=== PATIENT | male | born 1970 | race Two or more races ===

== ENCOUNTER 2024-05-25 13:13 | Inpatient (IN) | payer BC, OTHER ==
[~2024-05-25] VITALS: Ht 172.7 cm; Wt 110.0 kg
--- NOTE | 2024-05-25 13:18 | ED.PDOC ---
History of Present Illness HPI Comments 54 year old male HERNANDO transferred from [facility] presents to the ED with chief complaint of syncope. EMS reports patient had a syncopal episodes yesterday to which he was brought to [facility] for further evaluation. EMS relays patient was found to have a fractured spine from L3-L5 and bruised r ibs. EMS states patient had also reportedly hit his head during the fall. Patient denies any chest pain, SOB, dizziness, or N/V. Time Seen by MD: 13:15 Reviewed Notes: Nurses Notes, Varnish Melter Notes, Medications, Allergies Information Source: Patient, Emergency Med Personnel Mode of Arrival: EMS Severity: Moderate Timing: Days Duration: Since onset Prehospital treatment: None Past Medical History PAST MEDICAL HISTORY: Denies Surgical History: Denies all surgeries Family History Family History: Reviewed,noncontributory to illness Social History Smoker: Non-Smoker Alcohol: Denies ETOH Use Drugs: Denies Drug Use Lives In: Home Constitutional: denies: chills, diaphoresis, fatigue, fever, malaise, sweats, weakness, others EENTM: denies: blurred vision, double vision, ear bleeding, ear discharge, ear drainage, ear pain, ear ringing, eye pain, eye redness, hearing loss, mouth pain, mouth swelling, nasal discharge, nose bleeding, nose congestion, nose pain, photophobia, tearing, throat pain, throat swelling, voice changes, others Respiratory: denies: cough, hemoptysis, orthopnea, SOB at rest, shortness of breath, SOB with excertion, stridor, wheezing, others Cardiovascular: reports: syncope; denies: chest pain, dizzy spells, diaphoresis, Dyspnea on exertion, edema, irregular heart beat, left arm pain, li ghtheadedness, palpitations, PND, others Gastrointestinal: denies: abdomen distended, abdominal pain, blood streaked bowels, constipated, diarrhea, dysphagia, difficulty swallowing, hematemesis, melena, nausea, poor appetite, poor fluid intake, rectal bleeding, rectal pain, vomiting, others Genitourinary: denies: burning, dysuria, flank pain, frequency, hematuria, incontinence, penile discharge, penile sore, pain, testicle pain, testicle swelling, urgency, others Neurological: reports: headache; denies: dizziness, fainting, left sided numbness, left sided weakness, numbness, paresthesia, pre-existing deficit, right sided numbness, right sided weakness, seizure, speech problems, tingling, tremors, weakness, others Musculoskeletal: reports: back pain; denies: gout, joint pain, joint swelling, muscle pain, muscle stiffness, neck pain, others Integumetry: denies: bruises, change in color, change in hair/nails, dryness, laceration, lesions, lumps, rash, wounds, others Allergic/Immunocompromised: denies: Difficulty Healing, Frequent Infections, Hives, Itching, others Hematologic/Lymphatic: denies: anemia, blood clots, easy bleeding, easy bruising, swollen glands, others Endocrine: denies: excessive hunger, excessive sweating, excessive thirst, excessive urination, flushing, intolerance to cold, intolerance to heat, unexplained weight gain, unexplained weight loss, others Psychiatric: denies: anxiety, bipolar disorder, depression, hopeless, panic disorder, schizophrenia, sleepless, suicidal, others All Other Systems: Reviewed and Negative Physical Exam General Appearance: Moderate Distress, Normal HEENT: Normal ENT Inspection, PERRL/EOMI Neck: Full Range of Motion, Non-Tender, Normal, Normal Inspection Respiratory: Chest Non-Tender, Lungs Clear, No Accessory Muscle Use, No Respiratory Distress, Normal Breath Sounds Cardiovascular: No Edema, No JVD, No Murmur, No Gallop, Normal Peripheral Pulses, Regular Rate/Rhythm Breast Exam: Deferred Gastrointestinal: No Organomegaly, Non Tender, No Pulsatile Mass, Normal Bowel Sounds, Soft Genitalia: Deferred Pelvic: Deferred Rectal: Deferred Extremities: No calf tenderness, Normal capillary refill, Normal inspection, Normal range of motion, Non-tender, No pedal edema Musculoskeletal : Apperance: Normal Neurologic: Alert, clinical biostatistician II-XII nml as Tested, No Motor Deficits, Normal Affect, Normal Mood, No Sensory Deficits Cerebellar Function: NOT DONE Reflexes: NOT DONE Skin: Dry, Normal Color, Warm Peripheral Pulses: 3+ Radial (R), 3+ Radial (L) Lymphatic: No Adenopathy Was a procedure done? Was a procedure done?: No Differential Dx Considerations may include: Syncope Electrolyte imbalance X-Ray, Labs, Meds, VS Vital Signs Date Time Temp Pulse Resp B/P (MAP) Pulse Ox O2 Delivery O2 Flow Rate FiO2 05/25/24 13:42 98.6 99 16 131/90 (104) 99 Lab Test 05/25/24 13:57 Range/Units White Blood Count 10.5 4.4-10.8 10^3/uL Red Blood Count 4.60 4.5-5.90 10^6/uL Hemoglobin 16.2 13.5-17.5 g/dL Hematocrit 45.8 41.0-53.0 % Mean Corpuscular Volume 99.6 80.0-100.0 fL Mean Corpuscular Hemoglobin 35.1 H 28.0-32.0 pg Mean Corpuscular Hemoglobin Concent 35.3 32.0-36.0 g/dL Red Cell Distribution Width 13.6 11.8-14.3 % Platelet Count 254 140-450 10^3/uL Mean Platelet Volume 6.6 L 6.9-10.8 fL Neutrophils (%) (Auto) 79.9 37.0-80.0 % Lymphocytes (%) (Auto) 10.2 10.0-50.0 % Monocytes (%) (Auto) 7.6 0.0-12.0 % Eosinophils (%) (Auto) 1.4 0.0-7.0 % Basophils (%) (Auto) 0.9 0.0-2.0 % Neutrophils # (Auto) 8.4 1.6-8.6 10 ^3/uL Lymphocytes # (Auto) 1.1 0.4-5.4 10 ^3/uL Monocytes # (Auto) 0.8 0-1.3 10 ^3/uL Eosinophils # (Auto) 0.1 0-0.8 10 ^3/uL Basophils # (Auto) 0.1 0-0.2 10 ^3/uL Nucleated Red Blood Cells 0.1 % Sodium Level Pending Potassium Level Pending Chloride Level Pending Carbon Dioxide Level Pending Anion Gap Pending Blood Urea Nitrogen Pending Creatinine Pending Glomerular Filtration Rate Calc Pending BUN/Creatinine Ratio Pending Serum Glucose Pending Calcium Level Pending Troponin I High Sensitivity Pending Patient alert. Status post fall. Was transferred from [facility]. Vitals stable. Possible syncope. WBC within normal limits. Hemoglobin within normal limits. After reviewing Jasper nose he does have fracture of lumbar transverse process. Explained to the patient. Echo. Continue cardiac monitoring. Time of 1ST Reevaluation: 14:15 Reevaluation 1ST: Unchanged Patient Education/Counseling: Diagnosis, Treatment Family Education/Counseling: No Family Present Departure 1 Departure Time of Disposition: 14:34 Impression: Primary Impression: Syncope Qualified Codes: R55 - Syncope and collapse Additional Impressions: Musculoskeletal pain Lumbar vertebral fracture Qualified Codes: S32.039A - Unspecified fracture of third lumbar vertebra, initial encounter for closed fracture Disposition: ADMITTED INPATIENT Admit to: Med Surg Condition: Guarded Critical Care Note Critical Care Time?: Yes Stability Stability form required: No Heart Score Heart Score: Heart Score Response (Comments) Value History N/A 0 EKG N/A 0 Age N/A 0 Risk Factors N/A 0 Troponin N/A 0 Total 0 I personally scribed for BRAXTON HOOD MD ([email or web address]) on 05/25/24 at 13:18. Electronically submitted by Mateo Rivera ([email or web address]). BRAXTON HOOD MD May 25, 2024 13:18
[2024-05-25 14:13] LABS: Hemoglobin 16.2 g/dL (13.5-17.5); Lymphocytes # (auto) 1.1 10 ^3/uL (0.4-5.4); Mean Corpuscular Hgb Conc. 35.3 g/dL (32.0-36.0); Red Cell Distribution Width 13.6 % (11.8-14.3)
[2024-05-25 14:16] LABS: Basophils # (auto) 0.1 10 ^3/uL (0-0.2); Basophils % (auto) 0.9 % (0.0-2.0); Eosinophils # (auto) 0.1 10 ^3/uL (0-0.8); Eosinophils % (auto) 1.4 % (0.0-7.0); Hematocrit 45.8 % (41.0-53.0); Lymphocytes % (auto) 10.2 % (10.0-50.0); Mean Corpuscular Hemoglobin 35.1 pg (28.0-32.0); Mean Corpuscular Volume 99.6 fL (80.0-100.0); Monocytes # (auto) 0.8 10 ^3/uL (0-1.3); Monocytes % (auto) 7.6 % (0.0-12.0); Neutrophils # (auto) 8.4 10 ^3/uL (1.6-8.6); Neutrophils % (auto) 79.9 % (37.0-80.0); Nucleated Red Blood Cells % 0.1 %; Platelet Count (auto) 254 10^3/uL (140-450); White Blood Cell 10.5 10^3/uL (4.4-10.8)
[2024-05-25 14:24] LABS: Chloride 107 mmol/L (98-107); Potassium 4.3 mmol/L (3.5-5.1); Sodium 140 mmol/L (136-145)
[2024-05-25 14:25] LABS: Anion Gap 7 (5-15); Carbon Dioxide 26 mmol/L (20-31)
[2024-05-25 14:26] LABS: Calcium 9.5 mg/dL (8.7-10.4)
[2024-05-25 14:30] LABS: BUN/Creatinine Ratio 14.9 (10.0-20.0); Blood Urea Nitrogen 13 mg/dL (9-23); Glucose 118 mg/dL (74-106)
[2024-05-25 17:59] VITALS: PULSE 90; RESP 18; O2SAT 91
--- NOTE | 2024-05-25 18:14 | DVH ---
EXAM: CT LS SPINE WO CONTRAST HISTORY: FX COMPARISON: None CTDIvol 38.94 mGy, DLP 1311.37 mGy*cm. TECHNIQUE: Multiple axial CT images of the spine were obtained using bone algorithm. Axial and coron al reformatting was done. Bone and soft tissue windows were reviewed. Findings/ IMPRESSION: Fractures of the left lateral transverse processes of L1-L3. No significant osseous spinal canal sten osis. Mild to moderate osseous neural foraminal narrowing predominantly in the lower lumbar spine. Ad jacent soft tissue structures are unremarkable.
[2024-05-25] MEDS ORDERED: ONDANSETRON HCL 4 MG/2 ML VIAL IV PRN (20:30)
[2024-05-25] MEDS ORDERED: NITROGLYCERIN 0.4 MG SL TAB SL PRN (20:30)
[2024-05-25] MEDS ORDERED: MORPHINE SULFATE INJ 2 MG/ml SYRG IV PRN (20:30)
--- NOTE | 2024-05-25 21:14 | DVH ---
Carotid Duplex Clinical History: syncope Comparison: None Technique: Duplex Doppler evaluation of the extracranial carotid and vertebral arteries including color Doppler and spectral/pulsed waveform analysis was performed. Findings: RIGHT SIDE: The peak systolic velocities are 118 cm/s in the CCA, 100 cm/s in the ICA. The ICA/CCA ratio is 0.8. The external carotid artery is patent with peak systolic velocity of 75 cm/s proximally. There is appropriate antegrade flow in the right vertebral artery. LEFT SIDE: The peak systolic velocities are 88 cm/s in the CCA, 101 cm/s in the ICA. The ICA/CCA ratio is 1.2. The external carotid artery is patent with peak systolic velocity of 102 cm/s proximally. There is appropriate antegrade flow in the left vertebral artery. IMPRESSION: No hemodynamically significant stenosis noted in the right carotid system. No hemodynamically significant stenosis noted in the left carotid system. Reference: Radiology 2003; 229:340-346 Normal ICA PSV is <125 cm/sec and no plaque or intimal thickening is visible sonographically additional criteria include ICA/CCA PSV ratio <2.0 and ICA EDV <40 cm/sec <50% ICA stenosis ICA PSV is <125 cm/sec and plaque or intimal thickening is visible sonographically additional criteria include ICA/CCA PSV ratio <2.0 and ICA EDV <40 cm/sec 50-69% ICA stenosis ICA PSV is 125-230 cm/sec and plaque is visible sonographically additional criteria include ICA/CCA PSV ratio of 2.0-4.0 and ICA EDV of 40-100 cm/sec 70% ICA stenosis but less than near occlusion ICA PSV is >230 cm/sec and visible plaque and luminal narrowing are seen at carlson-scale and color Dopp ler ultrasound (the higher the Doppler parameters lie above the threshold of 230 cm/sec, the greater the likelihood of severe disease) additional criteria include ICA/CCA PSV ratio >4 and ICA EDV >100 cm/sec
--- NOTE | 2024-05-25 21:46 | DVHHPRES ---
History of Present Illness Resident Creating Document: YAMEL ANN RESIDENT History of Present Illness Kaiser Jiang is a 54 years old male with a PMH of type 2 DM, HLD, HTN transferred from the [facility] with a chief complaints of mechanical fall and syncope/seizure-like symptoms since yesterday afternoon. Patient reported yesterday he and his or walking, suddenly he lost balance in his lower legs, fell on the pedestrian walkway to his left side of body which resulted conjunctiva hemorrhage, left facial abrasion, bruise below the chin, chest tenderness and they went to hotel room and the night in restroom his observed him as he is unable to respond to commands, eyes opened and hence her stiff for a brief period 30-40 seconds and then he regain to normal conscious level, went to [facility], there imaging showed to have a fractured spine from L3-L5 and bruised ribs, the transferred patient to this facility for further management. Past Medical History Type 2 DM, HLD, HTN, bilateral neuropathy Past Surgical History: Appendectomy Family History: None Past Social History Lives with . Active smoker less than pack per day, 4-5 beers per day, but denies marijuana Review of Systems Constitutional: Yes: Sweats Eyes: Conjunctivae inflammation, Other (Subconjunctival hemorrhage), Redness ENT: No: Ear pain, Ear discharge, Nose pain, Nose discharge, Nose congestion, Mouth pain, Mouth swelling, Throat pain, Throat swelling, Other Respiratory: No: Cough, Dry, Shortness of breath, SOB with excertion, Wheezing, Hemoptysis, Pleuritic Pain, Sputum, Wheezing, Other Cardiovascular: Chest Pain Gastrointestinal: No: Nausea, Vomiting, Abdominal Pain, Diarrhea, Constipation, Melena, Hematochezia, Other Genitourinary: No Dysuria, No Frequency, No Incontinence, No Hematuria, No Retention, No Other Musculoskeletal: other (Shooting Pain to both legs), shoulder pain, back pain, leg pain Skin: Bruising Neurological: No: Weakness, Numbness, Incoordination, Change in speech, Confusion, Seizures, Other Allergies: Coded Allergies: NO KNOWN ALLERGIES (Unverified , 05/25/24) Medications Current Medications Medications Dose Ordered Sig/Lissy Route Start Time Stop Time Status Last Admin Dose Admin Sodium Chloride 10 ml Q8HR IV 05/25/24 22:00 Ondansetron HCl 4 mg Q4HP PRN IV 05/25/24 20:30 Acetaminophen 650 mg Q6HP PRN PO 05/25/24 20:30 Morphine Sulfate 2 mg Q4HPRN PRN IV 05/25/24 20:30 Enoxaparin Sodium 40 mg DAILY SC 05/25/24 20:30 Nitroglycerin 0.4 mg Q5MINP PRN SL 05/25/24 20:30 Morphine Sulfate 2 mg Q30M PRN IV 05/25/24 20:30 Exam Vital Signs Vital Signs Date Time Temp Pulse Resp B/P (MAP) Pulse Ox O2 Delivery O2 Flow Rate FiO2 05/25/24 18:34 85 20 131/82 (98) 95 05/25/24 17:59 Room Air* 0 21 05/25/24 17:57 98.1 98.1 Exam Pt is lying on bed General Appearance: Alert, Oriented X3, Cooperative, Not in acute distress HEENT: Subconjunctival hemorrhage Respiratory: Clear to auscultation, Normal air movement, No added sounds Cardiovascular: Chest tenderness Regular rate, Normal S1, Normal S2, No murmurs Abdominal: Active bowel sounds, Soft, no distention, no tenderness Extremities: Shooting pain to both legs, no edema Skin: Left facial abrasions, submental bruises MSK: Back and chest tenderness Neuro: Normal speech, sensorimotor deficits none Psych/Mental Status: Mental status NL, Mood NL Nurse was there as sharperone during examination Labs/Xrays Labs Test 05/25/24 13:57 Range/Units White Blood Count 10.5 4.4-10.8 10^3/uL Red Blood Count 4.60 4.5-5.90 10^6/uL Hemoglobin 16.2 13.5-17.5 g/dL Hematocrit 45.8 41.0-53.0 % Mean Corpuscular Volume 99.6 80.0-100.0 fL Mean Corpuscular Hemoglobin 35.1 H 28.0-32.0 pg Mean Corpuscular Hemoglobin Concent 35.3 32.0-36.0 g/dL Red Cell Distribution Width 13.6 11.8-14.3 % Platelet Count 254 140-450 10^3/uL Mean Platelet Volume 6.6 L 6.9-10.8 fL Neutrophils (%) (Auto) 79.9 37.0-80.0 % Lymphocytes (%) (Auto) 10.2 10.0-50.0 % Monocytes (%) (Auto) 7.6 0.0-12.0 % Eosinophils (%) (Auto) 1.4 0.0-7.0 % Basophils (%) (Auto) 0.9 0.0-2.0 % Neutrophils # (Auto) 8.4 1.6-8.6 10 ^3/uL Lymphocytes # (Auto) 1.1 0.4-5.4 10 ^3/uL Monocytes # (Auto) 0.8 0-1.3 10 ^3/uL Eosinophils # (Auto) 0.1 0-0.8 10 ^3/uL Basophils # (Auto) 0.1 0-0.2 10 ^3/uL Nucleated Red Blood Cells 0.1 % Sodium Level 140 136-145 mmol/L Potassium Level 4.3 3.5-5.1 mmol/L Chloride Level 107 98-107 mmol/L Carbon Dioxide Level 26 20-31 mmol/L Anion Gap 7 5-15 Blood Urea Nitrogen 13 9-23 mg/dL Creatinine 0.87 0.700-1.30 mg/dL Glomerular Filtration Rate Calc 102 >90 mL/min BUN/Creatinine Ratio 14.9 10.0-20.0 Serum Glucose 118 H 74-106 mg/dL Calcium Level 9.5 8.7-10.4 mg/dL Troponin I High Sensitivity < 3 L </=54 ng/L Assessment/Plan Assessment/Plan # mechanical fall without LOC # questionable seizures vs Syncope -ordered head CT -carotid Doppler showed no significant stenosis -neurology consultation if needed # Acute Fractures of the left lateral transverse processes of L1-L3 -evident on lumbar spine CT -consulted orthopedics for further evaluation -pain management as needed # ? subconjunctival hemorrhage left eye sequela of fall -monitor for now -no vision changes for now # chest contusion -pain management for now -supportive treatment # T2 DM -continuously monitor blood glucose -mild ISS if needed # tobacco dependence # alcohol abuse disorder -monitor for withdrawal symptoms -counseled regarding cessation for more than 17 minutes -consider concern nicotine patch if needed Lovenox for now No GI PPX Diabetic diet Goals of care discussed with the patient for more than 27 minutes: Full code status Case management discussed with Dr. Awad, patient and nurse Plan discussed with: Patient My Orders Orders - YAMEL ANN RESIDENT Procedure Category Date Status Time Admit ADMIT 05/25/24 Transmitted 20:27 Allergies KUNAL 05/25/24 In Process 20:27 Code Status CODE 05/25/24 Transmitted 20:27 2 Gm Sodium Diet DIET 05/26/24 Transmitted Breakfast Sodium Chloride Lock PHA 05/25/24 In Process (Saline Lock Ns) 22:00 Ondansetron Hcl PHA 05/25/24 In Process (Zofran) 20:30 Complete Blood Count LAB 05/26/24 Verified 04:00 Comprehensive LAB 05/26/24 Verified Metabolic Panel 04:00 Cardiac DIET 05/26/24 Transmitted Diet-2gna,Lofat,Lochol Breakfast Carotid Duplx W Color US 05/25/24 Resulted DOP 20:27 Acetaminophen Tablet PHA 05/25/24 In Process (Tylenol Tablet) 20:30 Morphine Sulfate PHA 05/25/24 In Process Injection 20:30 Enoxaparin Sodium PHA 05/25/24 In Process (Lovenox) 20:30 Nitroglycerin PHA 05/25/24 In Process Sublingual (Ntrostat 20:30 Morphine Sulfate PHA 05/25/24 In Process Injection 20:30 Oxygen By Nasal RT 05/25/24 Transmitted Cannula 20:27 Stat Ekg For Chest KUNAL 05/25/24 In Process Pain 20:27 Notify Of Changes KUNAL 05/25/24 In Process From Base 20:27 Talent Coordinator For KUNAL 05/25/24 In Process 24 Hours 20:27 Emergency Dysrhythmia KUNAL 05/25/24 In Process Protocol 20:27 Rhythm Strips Once KUNAL 05/25/24 In Process Every Shift 20:[address] 05/25/24 Logged 21:32 * Orthopedic Consult CONS 05/25/24 Transmitted 21:35 Vitamin D, 25-Hydroxy LAB 05/25/24 Logged 21:35 Vitamin B12 LAB 05/25/24 Logged 21:35 Urinalysis LAB 05/25/24 Logged 21:35 Thyroid Stimulating LAB 05/25/24 Logged Hormone 21:35 PTPTT LAB 05/25/24 Logged 21:35 Hemoglobin A1c LAB 05/25/24 Logged 21:35 Drug Screen LAB 05/25/24 Logged 21:35 Blood Alcohol LAB 05/25/24 Logged 21:35 Date of Service: May 25, 2024 Billing Provider: NAVEEN AWAD MD Common Visit Codes: [id number] INP/OBS CARE (HIGH) Secondary Visit Codes: 02998-[id number] CARE PLAN 30 MINUTES YAMEL ANN RESIDENT May 25, 2024 21:46 NAVEEN AWAD MD May 26, 2024 12:52
--- NOTE | 2024-05-25 22:19 | DVH ---
EXAM: CT STROKE CTH INDICATION: Mechanical fall TECHNIQUE: CT of the head without intravenous contrast. Radiation Dose Information: CT Dose: CTDI volume is 67.28 mGy. Dose-length product is 1325.6 mGy*cm The dose indicators for CT are the volume Computed Tomography (CT) Dose Index (CTDIvol) and the Dose Length Product (DLP), and are measured in units of mGy and mGy-cm, respectively. These indicators are not patient dose, but values generated from the CT scanner acquisition factors. The report includes radiation exposure data for exposures received during this examination. COMPARISON: None FINDINGS: There is no evidence of acute intracranial hemorrhage, extra-axial collection, mass effect, midline s hift, herniation or hydrocephalus. The ventricles, sulci and cisterns are age appropriate. The carlson-white differentiation is intact. Patchy periventricular and subcortical white matter hypoattenuation is nonspecific but may be related to small vessel ischemic disease. Air-fluid level left maxillary sinus and mastoid air cells are clear. The surrounding soft tissues and osseous structures are unremarkable. IMPRESSION: 1. No acute intracranial hemorrhage. 2. No CT findings of territorial ischemia. CRITICAL FINDINGS Critical Result: NEGATIVE Stroke Alert Findings discussed with Dr Matt, at 05/25/2024 10:07 PM, and acknowledged receipt and understandi ng of the findings. ..
[2024-05-25] MEDS: SODIUM CHLOR 0.9% PF (SALINE LOCK) 10ML VIAL/SYR IV SCH (22:59)
[2024-05-25] MEDS: MORPHINE SULFATE INJ 2 MG/ml SYRG IV PRN (23:09)
[2024-05-25] MEDS: ENOXAPARIN SOD 40 MG/0.4 ML SYRINGE SC SCH (23:10)
[2024-05-25 23:51] LABS: Urine Bacteria None Seen /hpf (None Seen)
[2024-05-25 23:52] LABS: Urine Blood Negative /uL (Negative); Urine Clarity Clear (Clear); Urine Color Light-Yellow (Yellow); Urine Protein, UAD Negative (Negative); Urine Specific Gravity 1.024 (1.001-1.035); Urine Urobilinogen Normal (Negative); Urine WBC <1 /hpf (0 - 3); Urine pH 6.5 (5.0-9.0)
[2024-05-26] VITALS (8 sets, daily range): BP systolic 122–139; BP diastolic 77–90; PULSE 16–91; RESP 16–18; TEMP 97.9–98.8; O2SAT 94–99
[2024-05-26 00:14] LABS: Amphetamine Screen, Urine Neg (NEGATIVE); Benzodiazephine Screen, Urine Neg (NEGATIVE)
[2024-05-26 00:15] LABS: Barbiturate Scree,Urine Neg (NEGATIVE); Cannabinoid Screen, Urine Neg (NEGATIVE); Cocaine Screen, Urine Neg (NEGATIVE); Opiate Scree,Urine Neg (NEGATIVE); Phencyclidine Screen, Urine Neg (NEGATIVE)
[2024-05-26 06:19] LABS: INR 0.99 (0.9-1.15); Partial Thromboplastin Time 29.7 SEC (24.5-34.5); Prothrombin Time 10.5 sec (9.3-11.8)
--- NOTE | 2024-05-26 07:05 | DVHPNRES ---
Progress Note Date Seen: May 26, 2024 Resident Creating Document: BRADFORD GERARD RESIDENT Medical Necessity Reason Pt with a Central, PICC or Fol: No Subjective Review of Systems Patient is a 54-year-old male with past medical history of diabetes, dyslipidemia, hypertension, degenerative arthritis of the spine, herniated L3-L5 discs, neuropathy, sciatica who came in after sustaining a mechanical fall. Patient notes that he often has episodes where either 1 or both of his knees buckle and he has to hold onto something for support. According to the patient, on 05/24/2024 he had a similar episode where his left knee buckled, he tried to hold onto a railing for support however he ended up twisting his torso and falling on the ground. Patient states that he hit his chin on the railing and hit the left side of his face on the floor. Patient was transferred from the [facility]. Patient notes that he was ambulatory after sustaining the fall. Past surgical history: Appendectomy, sustained a rib fracture from coughing in 2011 during an episode of bronchitis Home medications: Atorvastatin, Jardiance, amlodipine, duloxetine, metformin, alprazolam, gabapentin, celecoxib, losartan/HCT Past Hospitalization: In 2019 for lower back pain Social & Personal history: Patient lives with his in [place] in his currently traveling to [place]. Works in security. Smokes 3-5 cigarettes per day for the past 30 years. Drinks 4-5 beers every other day. Denies using any drugs. Allergies: Denies Patient seen and examined at bedside. Patient is alert and oriented to time, place person and responding to all questions. Eyes: No Pain, No Vision change, No Conjunctivae inflammation, No Eyelid inflammation, No Other, No Redness ENT: No Ear pain, No Ear discharge, No Nose pain, No Nose discharge, No Nose congestion, No Mouth pain, No Mouth swelling, No Throat pain, No Throat swelling, No Other Cardiovascular: No Chest Pain, No Palpitations, No Orthopnea, No Paroxysmal No Dyspnea, No Edema, No Lt Headedness, No Other Respiratory: No Cough, No Dry, No Shortness of breath, No SOB with exertion, No Wheezing, No Hemoptysis, No Pleuritic Pain, No Sputum, No Other Gastrointestinal: No Nausea, No Vomiting, No Abdominal Pain, No Diarrhea, No Constipation, No Melena, No Hematochezia, No Other Genitourinary: No Dysuria, No Frequency, No Incontinence, No Hematuria, No Retention, No Other Musculoskeletal: No other, No neck pain, No shoulder pain, No arm pain, No back pain, No hand pain, No leg pain, No foot pain Skin: No Rash, No Lesions, No Jaundice, No Bruising, No Other Objective vital signs Vital Sign Date Time Temp Pulse Resp B/P (MAP) Pulse Ox O2 Delivery O2 Flow Rate FiO2 05/26/24 05:27 83 18 122/89 05/26/24 05:00 98.8 94 98.8 05/26/24 00:41 Nasal Cannula* 2 28 Total Intake and Output 05/25/24 05/25/24 05/26/24 15:00 23:00 07:00 Intake Total 400 ml Output Total 920 ml Balance -520 ml medications Current Medications Medications Dose Ordered Sig/Lissy Route Start Time Stop Time Status Last Admin Dose Admin Sodium Chloride 10 ml Q8HR IV 05/25/24 22:00 05/26/24 05:28 10 ML Ondansetron HCl 4 mg Q4HP PRN IV 05/25/24 20:30 Acetaminophen 650 mg Q6HP PRN PO 05/25/24 20:30 Morphine Sulfate 2 mg Q4HPRN PRN IV 05/25/24 20:30 05/26/24 05:27 2 MG Enoxaparin Sodium 40 mg DAILY SC 05/25/24 20:30 05/25/24 23:10 40 MG Nitroglycerin 0.4 mg Q5MINP PRN SL 05/25/24 20:30 Morphine Sulfate 2 mg Q30M PRN IV 05/25/24 20:30 Examination General Appearance: Cooperative. Well developed. Well nourished. NAD Head Exam: Left subconjunctival hemorrhage noted, pain/soreness in the left eye on lateral deviation, all extraocular muscles intact Neck Exam: Medium-large submental hematoma. Non-tender. Normal alignment Pulmonary/Respiratory: Chest non-tender. Clear bilateral breath sounds, no crackles, no wheezing. Cardiovascular/Chest: Regular rate and rhythm. No murmurs. No JVD. Peripheral Pulses: 2+ Radial (R). 2+ Radial (L). 2+ Pedal (R). 2+ Pedal (L) Abdominal Exam: Normal bowel sounds. Soft. normal abdomen, no visible veins, Nontender. No hepatospenomegaly. No masses Ankle Exam: Negative ankle edema Lower extremities: Negative lower extremity edema Neuro/Mental Status: A&O x4. Coherent. Thoughts/Psych: Normal thought pattern. Appropriate mood and affect. Good judgement and insight Skin Exam: Normal inspection. Normal color. Warm. Dry laboratory and microbiology Laboratory Tests 05/25/24 13:57 Test 05/25/24 13:57 Range/Units Serum Glucose 118 H 74-106 mg/dL Labs and/or images reviewed: Labs reviewed by me, Image(s) reviewed by me Problem List/Assessment/Plan Problem List/Assessment/Plan Mechanical fall Fractures of the left lateral transverse processes of L1-L3 vertebra due to above Degenerative osteoarthritis of the spine Anterior chest wall trauma Ruled out stroke - lumbar spine CT: Fractures of the left lateral transverse processes of L1-L3. No significant osseous spinal canal stenosis. Gnee-yo-kzkslgaa osseous neuroforaminal narrowing predominantly in the lower lumbar spine. Adjacent soft tissue structures are unremarkable. - Head CT: No acute intracranial hemorrhage. No CT findings of territorial ischemia. - Carotid doppler: No hemodynamically significant stenosis noted in the right and left carotid system. - orthopedic consulted - CXR: Mild cardiomegaly and prominence of the pulmonary vasculature may suggest a mild degree of pulmonary vascular congestion in the appropriate clinical setting. Mild bibasilar atelectasis with no focal consolidation. No pneumothorax or pleural effusion visualized. Type 2 diabetes, Hb A1c 6.3 Peripheral neuropathy likely due to above - mild sliding scale insulin - gabapentin 400mg bid Obesity, BMI 36.7 - counseled extensively on healthy lifestyle interventions including diet and physical activity DVT prophylaxis: Levonox 40mg Goals of care: Full code, discussed for >16 minutes on 05/26/24 Plan discussed with patient Plan discussed with Dr. tSallings Plan discussed with: Patient, Other (RN) BRADFORD GERARD RESIDENT May 26, 2024 07:05
[2024-05-26] MEDS ORDERED: DEXTROSE (50%) 50ML SYRG IV PRN (10:30)
[2024-05-26] MEDS: InsuLIN REG 1unit/0.01ml Soln (100units/ml) SC SCH (11:30)
[2024-05-26] MEDS: ACCU-CHEK COMFORT CURVE STRIP VI SCH (12:23)
--- NOTE | 2024-05-26 12:57 | DVH ---
CLINICAL INFORMATION: 54 years old, Male; Chest trauma. TECHNIQUE: Single AP portable chest radiograph was obtained. COMPARISON: None FINDINGS: Lungs: Low lung volumes with mild bibasilar atelectasis. No focal consolidation visualized. Cardiac: Mild cardiomegaly. Pulmonary vasculature: Mild prominence of the pulmonary vasculature. Mediastinum/derek: Unremarkable. Bones: No acute osseous abnormality identified. Other: No other significant findings. IMPRESSION: 1. Mild cardiomegaly and prominence of the pulmonary vasculature May suggest a mild degree of pulmona ry vascular congestion in the appropriate clinical setting. 2. Mild bibasilar atelectasis with no focal consolidation. No pneumothorax or pleural effusion visual ized.
[2024-05-26] MEDS ORDERED: HYDROcodone-ACET 5/325MG TAB PO PRN (14:15)
[2024-05-26] MEDS: LIDOCAINE 5% TOPICAL PATCH TOP ONE (17:12)
[2024-05-26] MEDS: ceFAZolin 1GM/50ML 50 ML IV ONE (17:12)
[2024-05-26] MEDS: traMADol HCL 50 MG TAB PO PRN (17:12)
--- NOTE | 2024-05-26 17:35 | DVH ---
CLINICAL INDICATION: submental hematoma s/p fall TECHNIQUE: XY MANDIBLE COMPLETE MIN 4V Comparison: None FINDINGS/IMPRESSION: : There is no evidence of acute fracture or dislocation. Soft tissues are unremarkable.
[2024-05-26] MEDS: GABAPENTIN 400 MG CAP PO SCH (22:23)
[2024-05-26] MEDS: ceFAZolin 1GM/50ML 50 ML IV SCH (22:24)
[2024-05-27] VITALS (8 sets, daily range): BP systolic 117–144; BP diastolic 76–91; PULSE 79–94; RESP 17–19; TEMP 98–98.7; O2SAT 93–95
[2024-05-27 06:58] LABS: Basophils # (auto) 0 10 ^3/uL (0-0.2); Eosinophils # (auto) 0.2 10 ^3/uL (0-0.8); Hemoglobin 14.7 g/dL (13.5-17.5); Neutrophils # (auto) 4.3 10 ^3/uL (1.6-8.6); Red Blood Cells 4.17 10^6/uL (4.5-5.90); White Blood Cell 6.1 10^3/uL (4.4-10.8)
[2024-05-27 07:01] LABS: Basophils % (auto) 0.4 % (0.0-2.0); Eosinophils % (auto) 3.9 % (0.0-7.0); Hematocrit 41.6 % (41.0-53.0); Lymphocytes # (auto) 0.8 10 ^3/uL (0.4-5.4); Lymphocytes % (auto) 13.5 % (10.0-50.0); Mean Corpuscular Hemoglobin 35.2 pg (28.0-32.0); Mean Corpuscular Hgb Conc. 35.3 g/dL (32.0-36.0); Mean Corpuscular Volume 99.8 fL (80.0-100.0); Monocytes # (auto) 0.7 10 ^3/uL (0-1.3); Monocytes % (auto) 10.9 % (0.0-12.0); Neutrophils % (auto) 71.3 % (37.0-80.0); Nucleated Red Blood Cells % 0.1 %; Platelet Count (auto) 228 10^3/uL (140-450); Red Cell Distribution Width 13.5 % (11.8-14.3)
[2024-05-27 07:07] LABS: Anion Gap 6 (5-15); Carbon Dioxide 27 mmol/L (20-31); Chloride 106 mmol/L (98-107); Potassium 4.1 mmol/L (3.5-5.1); Sodium 139 mmol/L (136-145)
[2024-05-27 07:08] LABS: Calcium 9.4 mg/dL (8.7-10.4)
[2024-05-27 07:13] LABS: BUN/Creatinine Ratio 18.5 (10.0-20.0); Blood Urea Nitrogen 17 mg/dL (9-23); Glucose 140 mg/dL (74-106)
[2024-05-27] MEDS: LIDOCAINE 5% TOPICAL PATCH TOP SCH (09:39)
--- NOTE | 2024-05-27 17:08 | DVHPNRES ---
Progress Note Date Seen: May 27, 2024 Resident Creating Document: TAIWO MONAE RESIDENT Has the PT tested + for MRSA If YES, has PT been informed?: No Medical Necessity Reason Pt with a Central, PICC or Fol: No Subjective Review of Systems Apart from the lower back pain, patient is pleasant, around the neck the hematoma is stable, patient is able to talk eat breathe without any difficulty Patient reports: No new complaints, Feels better Review of Systems: HEENT:Abnormal (Hematoma), CVS:Normal, RESPIRATORY:Normal, GI:Normal, :Normal, MSK:Abnormal (Low back pain), NEURO:Normal Objective vital signs Vital Sign Date Time Temp Pulse Resp B/P (MAP) Pulse Ox O2 Delivery O2 Flow Rate FiO2 05/27/24 13:12 92 17 118/72 05/27/24 09:00 98.1 93 98.1 05/27/24 08:00 Room Air* 0 21 Total Intake and Output 05/26/24 05/26/24 05/27/24 14:59 22:59 06:59 Intake Total 490 ml 1690 ml 600 ml Output Total 400 ml Balance 490 ml 1690 ml 200 ml medications Current Medications Medications Dose Ordered Sig/Lissy Route Start Time Stop Time Status Last Admin Dose Admin Sodium Chloride 10 ml Q8HR IV 05/25/24 22:00 05/27/24 14:00 10 ML Ondansetron HCl 4 mg Q4HP PRN IV 05/25/24 20:30 Acetaminophen 650 mg Q6HP PRN PO 05/25/24 20:30 Morphine Sulfate 2 mg Q4HPRN PRN IV 05/25/24 20:30 05/27/24 12:42 2 MG Enoxaparin Sodium 40 mg DAILY SC 05/25/24 20:30 05/27/24 09:39 40 MG Nitroglycerin 0.4 mg Q5MINP PRN SL 05/25/24 20:30 Diagnostic Test (Pha) 1 strip ACHS 05/26/24 11:30 05/27/24 17:05 1 STRIP Insulin Human Regular ACHS SC 05/26/24 11:30 05/27/24 17:06 2 UNITS Dextrose 50 ml UD PRN IV 05/26/24 10:30 Gabapentin 400 mg BID PO 05/26/24 22:00 05/27/24 09:39 400 MG Cefazolin Sodium 50 ml @ 100 mls/hr Q8HR IV 05/26/24 22:00 05/27/24 15:26 100 MLS/HR Lidocaine 1 patch DAILY TOP 05/27/24 10:00 05/27/24 09:39 1 PATCH Tramadol HCl 50 mg Q6HP PRN PO 05/26/24 16:15 05/27/24 06:11 50 MG Examination: GENERAL:Abnormal (In mild distress), HEENT:Abnormal (Neck hematoma), NECK:Abnormal (Hematomas as above), LUNGS:Normal, CVS:Normal, ABDOMEN:Normal, MSK:Abnormal (Low back pain, distal neurological functions unremarkable), SKIN:Normal (Mild wounds), NEURO:Normal, :Normal laboratory and microbiology Laboratory Tests 05/27/24 05:47 Test 05/27/24 05:47 Range/Units Serum Glucose 140 H 74-106 mg/dL Labs and/or images reviewed: Labs reviewed by me, Image(s) reviewed by me Problem List/Assessment/Plan Problem List/Assessment/Plan Hospital Course: Mr. Jiang, a 54-year-old male with a history of diabetes, dyslipidemia, hypertension, degenerative arthritis of the spine, Appendectomy, herniated L3-L5 discs, neuropathy, and sciatica presented after a mechanical fall. He often experiences episodes where his knees buckle, and on 05/24/2024, his left knee buckled, causing him to twist his torso and fall, hitting his chin on a railing and the left side of his face on the floor. He was transferred from [facility] and was ambulatory after the fall. His past surgical history includes an appendectomy and a rib fracture from coughing in 2011. He takes multiple medications, lives with his in [place], works in security, smokes 3- 5 cigarettes daily, drinks 4-5 beers every other day, and denies drug use. He has no known allergies. On examination, he was alert and oriented. ## Degenerative osteoarthritis of the spine, Known degenerative joint disease status post previous surgery in the thoracic spine area : Reported by the patient #Mechanical fall with no prior history of similar fall #Anterior neck hematoma secondary to blunt trauma: Due to fall no compressive pathology noted, airway, imaging unremarkable negative for underlying any fracture.cefazolin Q 8 for reason the chance of infection in the hematoma #Fractures of the left lateral transverse processes of L1-L3 vertebra due to above : tramadol 50 mg Q 6 along with acetaminophen 650 mg q.6 to continue along with local lidocaine patch. Waiting for Orthopedics input. Physical therapy evaluation needed. #Anterior chest wall trauma, pain well improved., continue incentive spirometry #Left eye subconjunctival bleeding. #Ruled out stroke: Head CT, carotid Doppler unremarkable #Type 2 diabetes, Hb A1c 6.3: well-controlled target BG 140-180 , DCD in- hospital SSI, diet controlled # Peripheral neuropathy likely due to above: stable no focal neuro deficits noted Continue gabapentin 400 mg p.o. b.i.d #Obesity grade 2, BMI 36.9 #DVT prophylaxis: Levonox 40mg PCP: PCP at [facility] Barriers to discharge: medical management ongoing, discharge when appropriate. Case discussed with Dr. Stallings Code status: Full code. Complex patient care discussion needed total 39 minutes. discussed with the patient and patient's family Plan discussed with: Patient, Other My Orders My Orders Orders - TAIWO MONAE Procedure Category Date Status Time * Orthopedic Consult CONS 05/27/24 Transmitted 14:20 TAIWO MONAE May 27, 2024 17:07
[2024-05-27] MEDS: ACETAMINOPHEN 325 MG TAB PO PRN (20:22)
[2024-05-28] VITALS (8 sets, daily range): BP systolic 118–133; BP diastolic 76–89; PULSE 79–92; RESP 16–18; TEMP 36.8; O2SAT 93–96
[2024-05-28 11:16] LABS: Basophils # (auto) 0 10 ^3/uL (0-0.2); Hemoglobin 15.2 g/dL (13.5-17.5); Mean Corpuscular Hgb Conc. 35.1 g/dL (32.0-36.0); Neutrophils # (auto) 4.3 10 ^3/uL (1.6-8.6); Nucleated Red Blood Cells % 0.1 %; White Blood Cell 6.2 10^3/uL (4.4-10.8)
[2024-05-28 11:17] LABS: Basophils % (auto) 0.4 % (0.0-2.0); Eosinophils # (auto) 0.3 10 ^3/uL (0-0.8); Eosinophils % (auto) 4.1 % (0.0-7.0); Hematocrit 43.3 % (41.0-53.0); Lymphocytes # (auto) 0.9 10 ^3/uL (0.4-5.4); Lymphocytes % (auto) 14.8 % (10.0-50.0); Mean Corpuscular Hemoglobin 35.1 pg (28.0-32.0); Monocytes # (auto) 0.7 10 ^3/uL (0-1.3); Monocytes % (auto) 10.9 % (0.0-12.0); Neutrophils % (auto) 69.8 % (37.0-80.0); Platelet Count (auto) 237 10^3/uL (140-450); Red Blood Cells 4.33 10^6/uL (4.5-5.90); Red Cell Distribution Width 13.2 % (11.8-14.3)
[2024-05-28 11:22] LABS: Chloride 104 mmol/L (98-107); Potassium 4.4 mmol/L (3.5-5.1); Sodium 137 mmol/L (136-145)
[2024-05-28 11:23] LABS: Anion Gap 6 (5-15); Carbon Dioxide 27 mmol/L (20-31)
[2024-05-28 11:24] LABS: Calcium 9.9 mg/dL (8.7-10.4)
[2024-05-28 11:28] LABS: Glucose 160 mg/dL (74-106)
[2024-05-28 11:29] LABS: Blood Urea Nitrogen 16 mg/dL (9-23)
--- NOTE | 2024-05-28 17:27 | DVHPNRES ---
Progress Note Date Seen: May 28, 2024 Resident Creating Document: PHAM NOONAN RESIDENT Has the PT tested + for MRSA If YES, has PT been informed?: No Medical Necessity Reason Pt with a Central, PICC or Fol: No Subjective Review of Systems Patient is a 54-year-old male with past medical history of diabetes, dyslipidemia, hypertension, degenerative arthritis of the spine, herniated L3-L5 discs, neuropathy, sciatica who came in after sustaining a mechanical fall. Patient notes that he often has episodes where either 1 or both of his knees buckle and he has to hold onto something for support. According to the patient, on 05/24/2024 he had a similar episode where his left knee buckled, he tried to hold onto a railing for support however he ended up twisting his torso and falling on the ground. Patient states that he hit his chin on the railing and hit the left side of his face on the floor. Patient was transferred from the [facility]. Patient notes that he was ambulatory after sustaining the fall. Past surgical history: Appendectomy, sustained a rib fracture from coughing in 2011 during an episode of bronchitis Home medications: Atorvastatin, Jardiance, amlodipine, duloxetine, metformin, alprazolam, gabapentin, celecoxib, losartan/HCT Past Hospitalization: In 2019 for lower back pain Social & Personal history: Patient lives with his in [place] in his currently traveling to [place]. Works in security. Smokes 3-5 cigarettes per day for the past 30 years. Drinks 4-5 beers every other day. Denies using any drugs. Review of systems Patient is seen and examined at bedside. Patient is alert and oriented to time, place and person and responding to all questions. Patient reports mild to moderate lower back pain. Patient is able to walk without support. Objective vital signs Vital Sign Date Time Temp Pulse Resp B/P (MAP) Pulse Ox O2 Delivery O2 Flow Rate FiO2 05/28/24 17:24 98.3 88 17 126/81 (96) 94 98.3 05/28/24 08:15 Room Air* 0 21 Total Intake and Output 05/27/24 05/27/24 05/28/24 15:00 23:00 07:00 Intake Total 900 ml 1300 ml Output Total 700 ml Balance 900 ml 600 ml medications Current Medications Medications Dose Ordered Sig/Lissy Route Start Time Stop Time Status Last Admin Dose Admin Sodium Chloride 10 ml Q8HR IV 05/25/24 22:00 05/28/24 14:00 10 ML Acetaminophen 650 mg Q6HP PRN PO 05/25/24 20:30 05/28/24 16:49 650 MG Enoxaparin Sodium 40 mg DAILY SC 05/25/24 20:30 05/28/24 10:11 40 MG Gabapentin 400 mg BID PO 05/26/24 22:00 05/28/24 10:11 400 MG Lidocaine 1 patch DAILY TOP 05/27/24 10:00 05/28/24 10:10 1 PATCH Tramadol HCl 50 mg Q6HP PRN PO 05/26/24 16:15 05/28/24 16:48 50 MG Examination Physical Examination Gen - no pallor, no icterus, no cyanosis, no clubbing, no LAD, no edema . Skin - Patients skin is warm and dry.. HEENT - normocephalic, moist mucous membranes, patient has a submental hematoma in the distribution of davis area Neck - full ROM, no LAD, JVP waveform is not seen. Pulmonary - B/L vesicular breath sounds. no crackles , no wheezing, no stridor. cardiovascular - normal S1,S2 heard. no murmurs heard. peripheral pulses normal radial 2+, pedal 2+. capillary refill normal <2 secs. GI - soft abdomen with tenderness to palpation in the right and the left iliac regions. no tenderness to deep palpation . no hepatospleenomegaly. Neurological - Patient is A/O X 3 . Bilateral upper extremity strength 5/5, bilateral lower extremity strength 5/5, no facial droop, normal speech, no tremor, no sensory deficiets. laboratory and microbiology Laboratory Tests 05/28/24 10:48 Test 05/28/24 10:48 Range/Units Serum Glucose 160 H 74-106 mg/dL My Orders My Orders Orders - PHAM NOONAN Procedure Category Date Status Time Orthostatic Vital ORDERS 05/28/24 Transmitted Signs 16:46 PHAM NOONAN RESIDENT May 28, 2024 17:27
--- NOTE | 2024-05-28 18:24 | DVHINCON2 ---
Consultation - Spinal Surgery Date Seen: May 28, 2024 Referring Physician Reason for Consultation transverse process fractures from L1 to 3 Allergies and medications Allergies: Coded Allergies: NO KNOWN ALLERGIES (Unverified , 05/25/24) Review of systems Review of Systems: HEENT:Normal, RESPIRATORY:Normal, GI:Normal, MSK:Normal, NEURO:Normal Examination Vital signs Vital Signs Date Time Temp Pulse Resp B/P (MAP) Pulse Ox O2 Delivery O2 Flow Rate FiO2 05/28/24 17:49 98.9 05/28/24 17:24 88 17 126/81 (96) 94 05/28/24 08:15 Room Air* 0 21 Laboratory Labs Test 05/28/24 10:48 05/27/24 16:32 05/26/24 05:14 05/25/24 23:48 Range/Units White Blood Count 6.2 4.4-10.8 10^3/uL Red Blood Count 4.33 L 4.5-5.90 10^6/uL Hemoglobin 15.2 13.5-17.5 g/dL Hematocrit 43.3 41.0-53.0 % Mean Corpuscular Volume 100.0 80.0-100.0 fL Mean Corpuscular Hemoglobin 35.1 H 28.0-32.0 pg Mean Corpuscular Hemoglobin Concent 35.1 32.0-36.0 g/dL Red Cell Distribution Width 13.2 11.8-14.3 % Platelet Count 237 140-450 10^3/uL Mean Platelet Volume 6.7 L 6.9-10.8 fL Neutrophils (%) (Auto) 69.8 37.0-80.0 % Lymphocytes (%) (Auto) 14.8 10.0-50.0 % Monocytes (%) (Auto) 10.9 0.0-12.0 % Eosinophils (%) (Auto) 4.1 0.0-7.0 % Basophils (%) (Auto) 0.4 0.0-2.0 % Neutrophils # (Auto) 4.3 1.6-8.6 10 ^3/uL Lymphocytes # (Auto) 0.9 0.4-5.4 10 ^3/uL Monocytes # (Auto) 0.7 0-1.3 10 ^3/uL Eosinophils # (Auto) 0.3 0-0.8 10 ^3/uL Basophils # (Auto) 0 0-0.2 10 ^3/uL Nucleated Red Blood Cells 0.1 % Sodium Level 137 136-145 mmol/L Potassium Level 4.4 3.5-5.1 mmol/L Chloride Level 104 98-107 mmol/L Carbon Dioxide Level 27 20-31 mmol/L Anion Gap 6 5-15 Blood Urea Nitrogen 16 9-23 mg/dL Creatinine 1.00 0.700-1.30 mg/dL Glomerular Filtration Rate Calc 89 >90 mL/min BUN/Creatinine Ratio 16.0 10.0-20.0 Serum Glucose 160 H 74-106 mg/dL Calcium Level 9.9 8.7-10.4 mg/dL POC Glucose 145 H 70-106 mg/dl Prothrombin Time 10.5 9.3-11.8 sec Prothrombin Time INR 0.99 0.9-1.15 Activated Partial Thromboplast Time 29.7 24.5-34.5 SEC Hemoglobin A1c 6.3 H <5.7 % A1C Vitamin B12 Level 305 211-911 pg/mL Vitamin D 25-Hydroxy 18.3 L 30.0-100 ng/mL Thyroid Stimulating Hormone (TSH) 3.21 0.55-4.78 uIU/mL Plasma/Serum Blood Alcohol < 3.0 <10 mg/dL Urine Color Light-yellow Yellow Urine Clarity Clear Clear Urine pH 6.5 5.0-9.0 Urine Specific Lapel 1.024 1.001-1.035 Urine Protein Negative Negative Urine Ketones Negative Negative Urine Blood Negative Negative /uL Urine Nitrite Negative Negative Urine Bilirubin Negative Negative Urine Urobilinogen Normal Negative mg/dL Urine Leukocyte Esterase Negative Negative /uL Urine RBC None seen 0 - 3 /hpf Urine WBC <1 0 - 3 /hpf Urine Squamous Epithelial Cells Few <5 /hpf Urine Bacteria None seen None Seen /hpf Urine Glucose 4+ H Normal mg/dL Urine Opiates Screen Neg NEGATIVE Urine Fentanyl Screen Neg NEGATIVE Urine Barbiturates Screen Neg NEGATIVE Urine Phencyclidine Screen Neg NEGATIVE Urine Amphetamines Screen Neg NEGATIVE Urine Benzodiazepines Screen Neg NEGATIVE Urine Cocaine Screen Neg NEGATIVE Urine Cannabinoids Screen Neg NEGATIVE Test 05/25/24 13:57 Range/Units Troponin I High Sensitivity < 3 L </=54 ng/L Examination: GENERAL:Normal, HEENT:Normal, NECK:Normal, NECK:Abnormal, LUNGS:Abnormal, ABDOMEN:Normal, ABDOMEN:Abnormal, MSK:Abnormal, NEURO:Normal Problem List/Assessment/Plan Problems: (1) Lumbar vertebral fracture Assessment and Plan Transverse process fracture in the lumbar spine This is a biomechanically stable injury no brace needed no surgery needed she can ambulate as tolerated and get repeat films in 6 weeks to make sure fractures healed Plan discussed with Plan discussed with: Patient ISABEL WILKS MD May 28, 2024 18:24
--- NOTE | 2024-05-28 20:11 | DVHDSRES ---
Discharge Summary Date of Admission Resident Creating Document: PHAM NOONAN RESIDENT May 25, 2024 at 20:27 Date of Discharge: May 28, 2024 Admitting Diagnosis # mechanical fall without LOC # questionable seizures vs Syncope # Acute Fractures of the left lateral transverse processes of L1-L3 # ? subconjunctival hemorrhage left eye sequela of fall # chest contusion # T2 DM # tobacco dependence # alcohol abuse disorder Wounds: Submental hematoma with anterior neck contusion Labs/Diagnostic Data: Laboratory Results Test 05/28/24 10:48 05/27/24 16:32 05/26/24 05:14 05/25/24 23:48 White Blood Count 6.2 10^3/uL (4.4-10.8) Red Blood Count 4.33 10^6/uL (4.5-5.90) Hemoglobin 15.2 g/dL (13.5-17.5) Hematocrit 43.3 % (41.0-53.0) Mean Corpuscular Volume 100.0 fL (80.0-100.0) Mean Corpuscular Hemoglobin 35.1 pg (28.0-32.0) Mean Corpuscular Hemoglobin Concent 35.1 g/dL (32.0-36.0) Red Cell Distribution Width 13.2 % (11.8-14.3) Platelet Count 237 10^3/uL (140-450) Mean Platelet Volume 6.7 fL (6.9-10.8) Neutrophils (%) (Auto) 69.8 % (37.0-80.0) Lymphocytes (%) (Auto) 14.8 % (10.0-50.0) Monocytes (%) (Auto) 10.9 % (0.0-12.0) Eosinophils (%) (Auto) 4.1 % (0.0-7.0) Basophils (%) (Auto) 0.4 % (0.0-2.0) Neutrophils # (Auto) 4.3 10 ^3/uL (1.6-8.6) Lymphocytes # (Auto) 0.9 10 ^3/uL (0.4-5.4) Monocytes # (Auto) 0.7 10 ^3/uL (0-1.3) Eosinophils # (Auto) 0.3 10 ^3/uL (0-0.8) Basophils # (Auto) 0 10 ^3/uL (0-0.2) Nucleated Red Blood Cells 0.1 % Sodium Level 137 mmol/L (136-145) Potassium Level 4.4 mmol/L (3.5-5.1) Chloride Level 104 mmol/L (98-107) Carbon Dioxide Level 27 mmol/L (20-31) Anion Gap 6 (5-15) Blood Urea Nitrogen 16 mg/dL (9-23) Creatinine 1.00 mg/dL (0.700-1.30) Glomerular Filtration Rate Calc 89 mL/min (>90) BUN/Creatinine Ratio 16.0 (10.0-20.0) Serum Glucose 160 mg/dL (74-106) Calcium Level 9.9 mg/dL (8.7-10.4) POC Glucose 145 mg/dl (70-106) Prothrombin Time 10.5 sec (9.3-11.8) Prothrombin Time INR 0.99 (0.9-1.15) Activated Partial Thromboplast Time 29.7 SEC (24.5-34.5) Hemoglobin A1c 6.3 % A1C (<5.7) Vitamin B12 Level 305 pg/mL (211-911) Vitamin D 25-Hydroxy 18.3 ng/mL (30.0-100) Thyroid Stimulating Hormone (TSH) 3.21 uIU/mL (0.55-4.78) Plasma/Serum Blood Alcohol < 3.0 mg/dL (<10) Urine Color Light-yellow (Yellow) Urine Clarity Clear (Clear) Urine pH 6.5 (5.0-9.0) Urine Specific [place] 1.024 (1.001-1.035) Urine Protein Negative (Negative) Urine Ketones Negative (Negative) Urine Blood Negative /uL (Negative) Urine Nitrite Negative (Negative) Urine Bilirubin Negative (Negative) Urine Urobilinogen Normal mg/dL (Negative) Urine Leukocyte Esterase Negative /uL (Negative) Urine RBC None seen /hpf (0 - 3) Urine WBC <1 /hpf (0 - 3) Urine Squamous Epithelial Cells Few /hpf (<5) Urine Bacteria None seen /hpf (None Seen) Urine Glucose 4+ mg/dL (Normal) Urine Opiates Screen Neg (NEGATIVE) Urine Fentanyl Screen Neg (NEGATIVE) Urine Barbiturates Screen Neg (NEGATIVE) Urine Phencyclidine Screen Neg (NEGATIVE) Urine Amphetamines Screen Neg (NEGATIVE) Urine Benzodiazepines Screen Neg (NEGATIVE) Urine Cocaine Screen Neg (NEGATIVE) Urine Cannabinoids Screen Neg (NEGATIVE) Test 05/25/24 13:57 Troponin I High Sensitivity < 3 ng/L (</=54) Other Laboratory Tests 05/28/24 10:48 Brief Hx & Hospital Course: Patient is a 54-year-old male with a past medical history of diabetes, hyperlipidemia, hypertension, degenerative arthritis of spine, appendectomy, herniated L3-L5 disc, peripheral neuropathy and sciatica presented after a mechanical fall. He reported that he was walking on a sidewalk when his left knee buckled causing him to twist his torso and fall hitting his chin on the side rail and his face on the floor. He was transferred from [facility] and was ambulatory after the fall. Patient reported of lower back pain following which lumbar spine CT was done which showed fracture of left lateral transverse processes of L1-L3. Medical x-ray was done did not show any acute dislocation or fracture. Head CT was done which did not show any acute intracranial abnormality or territorial ischemia. Patient was evaluated by orthopedician who assessed the patient injury as biomechanically stable and recommended no brace or surgery, ambulation as tolerated and repeat imaging in 6 weeks to make sure fracture is healed. Patient was evaluated by Physical therapy and he is able to ambulate without support. Patient's submental hematoma anterior neck contusion is regressing and is advised to continue using ice pack anti-inflammatory medication. Patient is being sent home in stable condition and ambulating and recommended using cane for support. Review of systems Patient seen and examined at the bedside. Patient is alert and oriented to time, place and person. Patient reports [id number] pain in the lower back which has improved since the time of admission. Patient is ambulating without support. Physical Examination Gen - no pallor, no icterus, no cyanosis, no clubbing, no LAD, no edema . Skin - Patients skin is warm and dry. HEENT - normocephalic, moist mucous membranes, submental hematoma with anterior neck contusion. Neck - full ROM, no LAD, no JVD Pulmonary - B/L vesicular breath sounds. no crackles , no wheezing, no stridor. cardiovascular - normal S1,S2 heard. no murmurs heard. peripheral pulses normal radial 2+, pedal 2+. capillary refill normal <2 secs. GI - soft abdomen without tenderness to palpation . no hepatospleenomegaly. Neurological - Patient is A/O X 3. Bilateral upper extremity strength 5/5, bilateral lower extremity strength 5/5, no facial droop, normal speech, no tremor, bilateral decreased course touch sensation in the lower extremities. Consults/Reason for consult Orthopedic consultation for L1-L3 lumbar spine left lateral transverse process fracture Operations or Procedures CT lumbar spine without contrast shows Fractures of the left lateral transverse processes of L1-L3. No significant osseous spinal canal stenosis. Mild to moderate osseous neural foraminal narrowing predominantly in the lower lumbar spine. Adjacent soft tissue structures are unremarkable. Head CT without contrast shows no acute intracranial hemorrhage, no CT findings of territorial ischemia Carotid Doppler shows no hemodynamically significant stenosis of the right or left carotid system Mandible x-ray shows no evidence of acute fracture or dislocation, unremarkable soft tissues. Chest x-ray shows Mild cardiomegaly and prominence of the pulmonary vasculature May suggest a mild degree of pulmonary vascular congestion in the appropriate clinical setting, mild bibasilar atelectasis with no focal consolidation. No pneumothorax or pleural effusion visualized. Condition at Discharge: Good Final Diagnosis/Problems List # Mechanical fall # Fractures of the left lateral transverse processes of L1-L3 vertebra # Submental hematoma with anterior neck contusion # Degenerative osteoarthritis of the spine # Anterior chest wall trauma # Ruled out stroke # Type 2 diabetes, Hb A1c 6.3 # Peripheral neuropathy # Obesity, BMI 36.7 Discharge Disposition: Home Discharge Instruct/Medications Diet: Regular Activity: No Restrictions, As Tolerated Follow Up/Referral: Follow with the PCP in one week Repeat Lumbar CT after 6 weeks and Follow up with the orthopaedics Medications: Continue home pain medications Discharge Statement: "Patient was advised to return to the ER or call 911 if any headaches, dizziness, shortness of breath, chest pain, abdominal pain, bleeding, fevers, or worsening of medical condition. Patient was counseled about treatment plan, medications, possible side effects, patientverbalized understanding. All questions were answered to the best of my ability. This discharge took greater then 30 minutes in planning, reviewing documentation, counseling the patient, and discussing with other team members." ASSESSMENT ASSESSMENT Assessment # Mechanical fall # Fractures of the left lateral transverse processes of L1-L3 vertebra # Submental hematoma with anterior neck contusion # Degenerative osteoarthritis of the spine # Anterior chest wall trauma # Ruled out stroke # Type 2 diabetes, Hb A1c 6.3 # Peripheral neuropathy # Obesity, BMI 36.7 Date of Service: May 28, 2024 Billing Provider: BAIRON LANGLEY MD Common Visit Codes: 18410-GIU/OBS DISCH DAY >30min PHAM NOONAN RESIDENT May 28, 2024 20:11 BAIRON LANGLEY MD May 30, 2024 22:58
== END 2024-05-28 20:58 | disposition home or self-care (01) | DRG 552 ==
LOC: EDBD 13:13 → ER 13:13 → TELE 20:27 → TELE-WESTW 20:30
PROVIDERS: ADMIT Student in an Organized Health Care Education/Training Program; ATTEND Student in an Organized Health Care Education/Training Program
DX: S32.018A Other fracture of first lumbar vertebra, initial encounter for closed fracture (principal); S32.028A Other fracture of second lumbar vertebra, initial encounter for closed fracture; S32.038A Other fracture of third lumbar vertebra, initial encounter for closed fracture; F10.10 Alcohol abuse, uncomplicated; F17.200 Nicotine dependence, unspecified, uncomplicated; H11.32 Conjunctival hemorrhage, left eye; E78.5 Hyperlipidemia, unspecified; E66.9 Obesity, unspecified; E11.42 Type 2 diabetes mellitus with diabetic polyneuropathy; M47.896 Other spondylosis, lumbar region; S10.93XA Contusion of unspecified part of neck, initial encounter; Z68.36 Body mass index [BMI] 36.0-36.9, adult; Z79.899 Other long term (current) drug therapy; Z79.4 Long term (current) use of insulin; W18.39XA Other fall on same level, initial encounter; Y93.89 Activity, other specified; Y92.89 Other specified places as the place of occurrence of the external cause; Y99.8 Other external cause status; Y90.0 Blood alcohol level of less than 20 mg/100 ml
CPT/HCPCS: 36415; 70110; 70450; 71045; 72131; 80048; 80307; 80320; 81001; 82306; 82607; 82962; 83036; 84443; 84484; 85025; 85610; 85730; 93886; 97163; G0378; J1815